=== PATIENT | female | born 1990 | race Caucasian/White ===

== ENCOUNTER 2016-12-02 09:44 | Emergency (ER) | payer OTHER ==
[2016-12-02 10:27] VITALS: BP 130/79
[2016-12-02] MEDS ORDERED: Ibuprofen TAB* 600 MG PO ONE (12:05)
--- NOTE | 2016-12-02 12:18 | UC ---
Back Pain HPI - HPI Summary HPI Summary: patient fell down 6 stairs, landing on her tailbone and sliding down the rest. she has severe pain at the cleft, swelling noted, no brusiing. she is finding it hard to sit or stand comfortably. - History of Current Complaint Chief Complaint: UCBackPain Stated Complaint: TAILBONE INJURY FROM FALL 12/01 Time Seen by Provider: 12/02/16 11:55 Hx Obtained From: Patient Hx Last Menstrual Period: 12/02/16 ?: No Onset/Duration: Sudden Onset, Lasting Days Timing: Constant Severity Initially: Severe Severity Currently: Severe Pain Intensity: 7 Pain Scale Used: 0-10 Numeric Back Pain: Is Discrete @ - tailbone Aggravating: Movement, Walking Alleviating: Rest Associated Signs And Symptoms: Positive: Swelling - Risk Factors AAA Risk Factors: Negative TAD Risk Factors: Negative Cauda Equina Risk Factors: Negative - Allergies/Home Medications Allergies/Adverse Reactions: Allergies Allergy/AdvReac Type Severity Reaction Status Date / Time No Known Allergies Allergy Verified 12/02/16 10:19 Home Medications: Home Medications [id number] W/ APAP [Tylenol Cold & Flu Severe] 1 tab PO Q6H PRN [History Confirmed 12/02/16] PMH/Surg Hx/FS Hx/Imm Hx Previously Healthy: Yes Endocrine History Of: Denies: Diabetes Cardiovascular History Of: Denies: Cardiac Disorders Respiratory History Of: Denies: Asthma - Surgical History Surgical History: Yes Surgery Procedure, Year, and Place: 2006 and 2012. RIGHT HAND SX TIMES 3 SINCE 10/2015 - Family History Known Family History: Positive: Cardiac Disease, Hypertension, Diabetes - Social History Alcohol Use: None Substance Use Type: None Smoking Status (MU): Never Smoked Tobacco Review of Systems Constitutional: Negative Skin: Negative Eyes: Negative ENT: Negative Respiratory: Negative Cardiovascular: Palpitations Gastrointestinal: Negative Genitourinary: Negative Motor: Negative Neurovascular: Negative Musculoskeletal: Arthralgia, Decreased ROM, Edema, Myalgia Neurological: Negative Psychological: Negative All Other Systems Reviewed And Are Negative: Yes Physical Exam Triage Information Reviewed: Yes Appearance: Well-Appearing, Pain Distress, Obese Vital Signs: Initial Vital Signs Temp 98.0 F 12/02/16 10:20 Pulse 93 12/02/16 10:20 Resp 16 12/02/16 10:20 BP 130/79 02/12/17 10:20 Pulse Ox 99 12/02/16 10:20 Vital Signs Reviewed: Yes Eye Exam: Normal Eyes: Positive: Conjunctiva Clear ENT Exam: Normal ENT: Positive: Normal ENT inspection, Hearing grossly normal, Pharynx normal, TMs normal Dental Exam: Normal Neck exam: Normal Neck: Positive: Supple, Nontender, No Lymphadenopathy Respiratory Exam: Normal Respiratory: Positive: Chest non-tender, Lungs clear, Normal breath sounds Cardiovascular Exam: Normal Cardiovascular: Positive: RRR, No Murmur, Pulses Normal Abdominal Exam: Normal Abdomen Description: Positive: Nontender, No Organomegaly, Soft Bowel Sounds: Positive: Present Musculoskeletal Exam: Normal Musculoskeletal: Positive: Strength Intact, ROM Intact, No Edema Neurological Exam: Normal Neurological: Positive: Alert, Muscle Tone Normal Psychological Exam: Normal Skin Exam: Normal Back Pain Course/Dx - Course Course Of Treatment: hx obtained, exam performed, meds reveiwed, ibuprofen given , xray obtained, reviewed treatment and discusses risk and benefits of xray, patient opted to have an xray. - Differential Dx/Diagnosis Differential Diagnosis/HQI/PQRI: Arthritis, Herniated Disc, Strain, Sprain Provider Diagnoses: fracture coccyx Discharge - Discharge Plan Condition: Stable Disposition: HOME Patient Education Materials: Coccyx Injury (ED) Additional Instructions: !. Take the medications as prescribed. 2. Find something that you can tolerate sitting, donut cushion or soft cushion. 3. pain free Range of Motion.
--- NOTE | 2016-12-02 12:37 | RAD ---
Indication: " Tailbone" pain after a fall down stairs Comparison: None. Technique: AP and lateral views sacrum and coccyx. Report: Depicted on the lateral view image there is anterior displacement of the coccyx relative to the sacrum. The bones appear to be in-line on the AP view. Remaining visualized bones are intact and properly aligned. IMPRESSION: In the correct clinical setting these findings could be compatible with a minimally displaced sacrococcygeal fracture.
== END 2016-12-02 13:08 | disposition home or self-care (01) ==
LOC: UCCORT 09:44
DX: S32.2XXA Fracture of coccyx, initial encounter for closed fracture (principal); W10.9XXA Fall (on) (from) unspecified stairs and steps, initial encounter; Y92.9 Unspecified place or not applicable
CPT/HCPCS: 72220; 99212; A9270-GY; G0463

== ENCOUNTER 2017-11-01 08:14 | Emergency (ER) | payer OTHER ==
[2017-11-01 08:31] VITALS: BP 122/78
--- NOTE | 2017-11-01 09:32 | UC ---
Eye Complaint HPI - HPI Summary HPI Summary: 27 yo female with mild URI symptoms x 1 week now with bilateral eye redness and D/C x 3 days no pain irritated and itchy - History of Current Complaint Chief Complaint: UCEye Stated Complaint: BILATERAL EYE COMPLAINT Time Seen by Provider: 11/01/17 09:23 Hx Obtained From: Patient Hx Last Menstrual Period: unknown, Onset/Duration: Gradual Onset, Lasting Days - 3 Severity Initially: Mild Severity Currently: Mild Pain Intensity: 2 Pain Scale Used: 0-10 Numeric Location of Injury: Conjunctiva Associated Signs And Symptoms: Positive: Drainage (Purulent) - Risk Factors Penetrating Injury Risk Factor: Negative Globe Rupture Risk Factors: Negative Acute Glaucoma Risk Factors: Negative Optic Artery Occlusion Risk Factors: Negative - Allergies/Home Medications Allergies/Adverse Reactions: Allergies Allergy/AdvReac Type Severity Reaction Status Date / Time No Known Allergies Allergy Verified 11/01/17 08:31 Home Medications: Home Medications Docosahexaenoic Acid [ Dha] 200 mg PO DAILY 11/01/17 [History Confirmed 11/01/17] PMH/Surg Hx/FS Hx/Imm Hx Previously Healthy: Yes - Surgical History Surgical History: Yes Surgery Procedure, Year, and Place: 2006 and 2012. RIGHT HAND SX TIMES 3 SINCE 10/2015 - Family History Known Family History: Positive: Cardiac Disease, Hypertension, Diabetes - Social History Alcohol Use: None Substance Use Type: None Smoking Status (MU): Never Smoked Tobacco Review of Systems Constitutional: Negative Skin: Negative Eyes: Drainage, Eye Redness ENT: Nasal Discharge, Sinus Congestion Respiratory: Negative Cardiovascular: Negative Gastrointestinal: Negative Genitourinary: Negative Motor: Negative Neurovascular: Negative Musculoskeletal: Negative Neurological: Negative Psychological: Negative Is Patient Immunocompromised?: No All Other Systems Reviewed And Are Negative: Yes Physical Exam Triage Information Reviewed: Yes Appearance: Well-Appearing, No Pain Distress, Well-Nourished Vital Signs: Initial Vital Signs Temp 98 F 11/01/17 08:27 Pulse 81 11/01/17 08:27 Resp 18 11/01/17 08:27 BP 122/78 11/01/17 08:27 Pulse Ox 100 11/01/17 08:27 Eyes: Positive: Conjunctiva Inflamed, Discharge ENT: Positive: Nasal congestion, Nasal drainage, Uvula midline. Negative: Tonsillar swelling, Tonsillar exudate, Trismus, Muffled voice, Hoarse voice, Sinus tenderness Neck: Positive: Supple, Nontender, No Lymphadenopathy Respiratory: Positive: Lungs clear, Normal breath sounds, No respiratory distress Cardiovascular: Positive: RRR, No Murmur Musculoskeletal: Positive: ROM Intact, No Edema Neurological: Positive: Alert Psychological Exam: Normal Skin Exam: Normal Eye Complaint Course/Dx - Differential Dx/Diagnosis Provider Diagnoses: bilateral conjunctivitis Discharge - Discharge Plan Condition: Stable Disposition: HOME Prescriptions: Polymyx/Trimethoprim OPTH* [Polytrim OPHTH*] 1 - 2 drop BOTH EYES QID #1 btl Patient Education Materials: Conjunctivitis (ED) Forms: *Work Release Referrals: No Primary Care Phys,NOPCP [Primary Care Provider] - Additional Instructions: recheck in 4 days if not better recheck sooner for new or worsening symptoms also use ZADITOR eye drops (OTC)
== END 2017-11-01 09:33 | disposition home or self-care (01) ==
LOC: UCCORT 08:14
DX: H10.9 Unspecified conjunctivitis (principal)
CPT/HCPCS: 99212; G0463

== ENCOUNTER 2018-01-14 07:38 | Emergency (ER) | payer MEDICAID, OTHER ==
[2018-01-14 07:57] VITALS: BP 132/61
--- NOTE | 2018-01-14 08:20 | UC ---
Skin Complaint HPI - HPI Summary HPI Summary: facial rash x 1 day rash around the eyes , + red , itchy , puffy eyes, no eye pain , no eye discharge used a make up remover last night , woke up with the rash this morning - History of Current Complaint Chief Complaint: UCEye Time Seen by Provider: 01/14/18 07:52 Stated Complaint: BILATERAL EYE COMPLAINT Hx Obtained From: Patient Hx Last Menstrual Period: pt not sure periods were irregular before preganancy ?: Yes Onset/Duration: Gradual Onset, Lasting Days - 1, Still Present Timing: Constant Onset Severity: Moderate Current Severity: Moderate Pain Intensity: 6 Pain Scale Used: 0-10 Numeric Location: Face Character: Swelling, Pruritus, Redness Aggravating Factor(s): Nothing Alleviating Factor(s): Nothing Associated Signs & Symptoms: Positive: Rash. Negative: Nausea, Vomiting, Numbness, Fever, Chills, Tenderness - Allergy/Home Medications Allergies/Adverse Reactions: Allergies Allergy/AdvReac Type Severity Reaction Status Date / Time No Known Allergies Allergy Verified 01/14/18 07:47 Home Medications: Home Medications Pnv No.95/Ferrous Fum/Folic AC [ Vitamin & Minera 28-0.8 mg] 1 tab PO DAILY 01/14/18 [History Confirmed 01/14/18] Review of Systems Constitutional: Negative Skin: Rash Eyes: Negative ENT: Negative Respiratory: Negative Cardiovascular: Negative Is Patient Immunocompromised?: No All Other Systems Reviewed And Are Negative: Yes PMH/Surg Hx/FS Hx/Imm Hx Previously Healthy: Yes - Surgical History Surgical History: Yes Surgery Procedure, Year, and Place: 2006 and 2012. RIGHT HAND SX TIMES 3 SINCE 10/2015 - Family History Known Family History: Positive: Cardiac Disease, Hypertension, Diabetes - Social History Alcohol Use: None Substance Use Type: None Smoking Status (MU): Never Smoked Tobacco Physical Exam Triage Information Reviewed: Yes Appearance: Well-Appearing, No Pain Distress, Well-Nourished Vital Signs: Initial Vital Signs Temp 98.2 F 01/14/18 07:48 Pulse 92 01/14/18 07:48 Resp 18 01/14/18 07:48 BP 132/61 01/14/18 07:48 Pulse Ox 99 01/14/18 07:48 Vital Signs Reviewed: Yes Eye Exam: Normal Eyes: Positive: Conjunctiva Clear ENT Exam: Normal ENT: Positive: Normal ENT inspection, Hearing grossly normal, Pharynx normal Neck: Positive: Supple, Nontender Respiratory Exam: Normal Respiratory: Positive: Chest non-tender, Lungs clear, Normal breath sounds Cardiovascular: Positive: RRR, No Murmur, Pulses Normal Skin: Positive: rashes - macular rash periorbital area, buffy bilateral upper eyelid, Course/Dx - Diagnoses Provider Diagnoses: contact dermatitis Discharge - Sign-Out/Discharge Documenting (check all that apply): Discharge - Discharge Plan Condition: Stable Disposition: HOME Prescriptions: Triamcinolone 0.025% CM(NF) [Kenalog Cream 0.025%*] 1 applic TOPICAL BID #30 gm Patient Education Materials: Contact Dermatitis (ED) Forms: *Work Release Referrals: No Primary Care Phys,NOPCP [Primary Care Provider] - 7 Days - Billing Disposition and Condition Condition: STABLE Disposition: HOME
== END 2018-01-14 08:14 | disposition home or self-care (01) ==
LOC: UCCORT 07:38
DX: L25.9 Unspecified contact dermatitis, unspecified cause (principal)
CPT/HCPCS: 99211; G0463

== ENCOUNTER 2019-03-12 08:10 | Emergency (ER) | payer OTHER ==
[2019-03-12 08:33] VITALS: BP 132/85
--- NOTE | 2019-03-12 09:03 | ED ---
Throat Pain/Nasal Congestion - HPI Summary HPI Summary: 29 yr female with the complaint of sore throat. Onset three days ago. The patient has had runny nose, and coughing. Other people have had similar symptoms in the family. The patient has no other complaints. Symptoms are moderate - History of Current Complaint Chief Complaint: UCRespiratory Time Seen by Provider: 03/12/19 08:42 - Allergies/Home Medications Allergies/Adverse Reactions: Allergies Allergy/AdvReac Type Severity Reaction Status Date / Time No Known Allergies Allergy Verified 03/12/19 08:29 Home Medications: Home Medications Chlorpheniramine/Dextromethorp [Cough & Cold] 1 tab PO Q4H PRN 03/12/19 [ History Confirmed 03/12/19] Guaifenesin/Dextromethorphan [Cough-Chest Congestion Dm Liq] 177 ml PO Q4H PRN 03/12/19 [History Confirmed 03/12/19] PMH/Surg Hx/FS Hx/Imm Hx Endocrine/Hematology History: Denies: Hx Diabetes Respiratory History: Denies: Hx Asthma - Surgical History Surgery Procedure, Year, and Place: 2006 and 2012, 2018. RIGHT HAND SX TIMES 3 SINCE 10/2015 Infectious Disease History: No Infectious Disease History: Denies: Traveled Outside the [place] in Last 30 Days - Family History Known Family History: Positive: Cardiac Disease, Hypertension, Diabetes - Social History Occupation: Employed Full-time Alcohol Use: None Substance Use Type: Reports: None Smoking Status (MU): Never Smoked Tobacco Review of Systems Constitutional: Negative Positive: Sore Throat, Nasal Discharge Positive: Cough All Other Systems Reviewed And Are Negative: Yes Physical Exam Triage Information Reviewed: Yes Vital Signs On Initial Exam: Initial Vitals Temp Pulse Resp BP Pulse Ox 97.3 F 97 20 132/85 97 03/12/19 08:30 03/12/19 08:30 03/12/19 08:30 03/12/19 08:30 03/12/19 08:30 Vital Signs Reviewed: Yes Appearance: Positive: Well-Appearing, No Pain Distress Skin: Positive: Warm, Skin Color Reflects Adequate Perfusion Head/Face: Positive: Normal Head/Face Inspection Eyes: Positive: EOMI, СВЕТЛАНА ENT: Positive: Normal ENT inspection, Pharyngeal erythema, Nasal congestion, TMs normal Neck: Positive: Nontender Respiratory/Lung Sounds: Positive: Clear to Auscultation, Breath Sounds Present Cardiovascular: Positive: RRR. Negative: Murmur Abdomen Description: Negative: Distended Musculoskeletal: Positive: Strength/ROM Intact Neurological: Positive: Sensory/Motor Intact, Alert, Oriented to Person Place, Time, CN Intact II-III Psychiatric: Positive: Normal - [place] Coma Scale Best Eye Response: 4 - Spontaneous Best Motor Response: 6 - Obeys Commands Best Verbal Response: 5 - Oriented Coma Scale Total: 15 Diagnostics - Vital Signs Vital Signs Temp Pulse Resp BP Pulse Ox 03/12/19 08:30 97.3 F 97 20 132/85 97 - Laboratory Lab Results: Lab Results 03/12/19 Range/Units 08:49 Group A Strep Rapid Positive A (Negative) Lab Statement: Any lab studies that have been ordered have been reviewed, and results considered in the medical decision making process. EENT Course/Dx - Course Course Of Treatment: 29 yr old female with the positive rapid strep. Rx amox. - Diagnoses Provider Diagnoses: Strep throat Discharge - Sign-Out/Discharge Documenting (check all that apply): Patient Departure All imaging exams completed and their final reports reviewed: No Studies - Discharge Plan Condition: Good Disposition: HOME Prescriptions: Amoxicillin PO (*) [Amoxicillin 500 MG CAP*] 500 mg PO TID #30 cap Patient Education Materials: Strep Throat (ED) Referrals: No Primary Care Phys,NOPCP [Primary Care Provider] - [facility] [place] [facility] [Outside] - 3 Days - Billing Disposition and Condition Condition: GOOD Disposition: Home
== END 2019-03-12 09:10 | disposition home or self-care (01) ==
LOC: UCCORT 08:10
DX: J02.0 Streptococcal pharyngitis (principal)
CPT/HCPCS: 87651; 99212; G0463

== ENCOUNTER 2019-05-18 14:43 | Emergency (ER) | payer OTHER ==
[2019-05-18 15:13] VITALS: BP 139/83
--- NOTE | 2019-05-18 15:21 | ED ---
Throat Pain/Nasal Congestion - HPI Summary HPI Summary: 29 yr old female with the complaint of right ear pain. Onset over the weekend. She has had URI symptoms the past week. No fever. Symptoms are moderate. No NV. No allergies to meds. She states she caught her husbands cold last week. - History of Current Complaint Chief Complaint: UCEar Time Seen by Provider: 05/18/19 15:13 - Allergies/Home Medications Allergies/Adverse Reactions: Allergies Allergy/AdvReac Type Severity Reaction Status Date / Time No Known Allergies Allergy Verified 05/18/19 15:09 PMH/Surg Hx/FS Hx/Imm Hx Endocrine/Hematology History: Denies: Hx Diabetes Respiratory History: Denies: Hx Asthma - Surgical History Surgery Procedure, Year, and Place: 2006 and 2012, 2018. RIGHT HAND SX TIMES 3 SINCE 10/2015 Infectious Disease History: No Infectious Disease History: Denies: Traveled Outside the [place] in Last 30 Days - Family History Known Family History: Positive: Cardiac Disease, Hypertension, Diabetes - Social History Occupation: Employed Full-time Alcohol Use: None Substance Use Type: Reports: None Smoking Status (MU): Never Smoked Tobacco Review of Systems Constitutional: Negative Positive: Ear Ache, Nasal Discharge All Other Systems Reviewed And Are Negative: Yes Physical Exam Triage Information Reviewed: Yes Vital Signs On Initial Exam: Initial Vitals Temp Pulse Resp BP Pulse Ox 97.4 F 85 17 139/83 100 05/18/19 15:10 05/18/19 15:10 05/18/19 15:10 05/18/19 15:10 05/18/19 15:10 Vital Signs Reviewed: Yes Appearance: Positive: Well-Appearing, No Pain Distress Skin: Positive: Warm, Skin Color Reflects Adequate Perfusion Head/Face: Positive: Normal Head/Face Inspection Eyes: Positive: EOMI ENT: Positive: Nasal congestion, Nasal drainage, TM red - right with effusion Neck: Positive: Nontender Respiratory/Lung Sounds: Positive: Clear to Auscultation, Breath Sounds Present Cardiovascular: Positive: RRR. Negative: Murmur Abdomen Description: Negative: Distended Musculoskeletal: Positive: Strength/ROM Intact Neurological: Positive: Sensory/Motor Intact, Alert, Oriented to Person Place, Time, CN Intact II-III, Speech Normal Psychiatric: Positive: Normal Diagnostics - Vital Signs Vital Signs Temp Pulse Resp BP Pulse Ox 05/18/19 15:10 97.4 F 85 17 139/83 100 - Laboratory Lab Statement: Any lab studies that have been ordered have been reviewed, and results considered in the medical decision making process. EENT Course/Dx - Course Course Of Treatment: 29 yr old with right OM. Rx with amox - Diagnoses Provider Diagnoses: Right otitis media, Upper respiratory infection, Hypertension Discharge - Sign-Out/Discharge Documenting (check all that apply): Patient Departure All imaging exams completed and their final reports reviewed: No Studies - Discharge Plan Condition: Good Disposition: HOME Prescriptions: Amoxicillin PO (*) [Amoxicillin 500 MG CAP*] 500 mg PO TID #30 cap Patient Education Materials: Ear Infection (ED), Hypertension (ED) Referrals: No Primary Care Phys,NOPCP [Primary Care Provider] - [facility] [place] [facility] [Outside] - 2 Days - Billing Disposition and Condition Condition: GOOD Disposition: Home
== END 2019-05-18 15:27 | disposition home or self-care (01) ==
LOC: UCCORT 14:43
DX: H66.91 Otitis media, unspecified, right ear (principal); J06.9 Acute upper respiratory infection, unspecified; I10 Essential (primary) hypertension
CPT/HCPCS: 99212; G0463

== ENCOUNTER 2019-07-19 13:09 | Emergency (ER) | payer OTHER ==
[2019-07-19 15:10] VITALS: BP 134/83
--- NOTE | 2019-07-19 15:22 | UC ---
Skin Complaint HPI - HPI Summary HPI Summary: Pt presents with c/o of tender "pimple" that pt reports squeezing and "popping" with small amount of purulent drainge yesterday. Pt sates taht now the area around the "pimple" is swollen, tender and firm to touch. - History of Current Complaint Time Seen by Provider: 07/19/19 14:44 Stated Complaint: SKIN COMPLAINT Hx Obtained From: Patient Hx Last Menstrual Period: 07/04/19 ?: No Onset/Duration: Gradual Onset, Lasting Days, Still Present, Worse Since - onset Skin Exposure Onset/Duration: Days Ago Timing: Constant Onset Severity: Mild Current Severity: Moderate Pain Intensity: 4 Location: Face, Nose - left side Character: Redness, Raised, Painful Aggravating Factor(s): Touch Associated Signs & Symptoms: Positive: Drainage, Tenderness - Allergy/Home Medications Allergies/Adverse Reactions: Allergies Allergy/AdvReac Type Severity Reaction Status Date / Time No Known Allergies Allergy Verified 07/19/19 14:58 Home Medications: Home Medications Naproxen Sodium [Aleve] 440 mg PO ONCE PRN 07/19/19 [History Confirmed 07/19/19] Vitamin C Gummi 2 tab PO DAILY 07/19/19 [History Confirmed 07/19/19] PMH/Surg Hx/FS Hx/Imm Hx Previously Healthy: Yes - Surgical History Surgical History: Yes Surgery Procedure, Year, and Place: 2006 and 2012, 2018. RIGHT HAND SX TIMES 3 SINCE 10/2015 - Family History Known Family History: Positive: Cardiac Disease, Hypertension, Diabetes - Social History Occupation: Employed Full-time Alcohol Use: None Substance Use Type: None Smoking Status (MU): Never Smoked Tobacco Have You Smoked in the Last Year: No Review of Systems All Other Systems Reviewed And Are Negative: Yes Constitutional: Positive: Negative Skin: Positive: Other - tender, firm "lump", left side nostril. Eyes: Positive: Negative ENT: Positive: Other - teneder mass left side nostril Respiratory: Positive: Negative Cardiovascular: Positive: Negative Gastrointestinal: Positive: Negative Genitourinary: Positive: Negative Motor: Positive: Negative Neurovascular: Positive: Negative Musculoskeletal: Positive: Negative Neurological: Positive: Negative Psychological: Positive: Negative Is Patient Immunocompromised?: No Physical Exam Triage Information Reviewed: Yes Appearance: Well-Appearing Vital Signs: Initial Vital Signs Temp 99.1 F 09/29/19 15:01 Pulse 85 07/19/19 15:01 Resp 20 07/19/19 15:01 BP 134/83 07/19/19 15:01 Pulse Ox 99 07/19/19 15:01 Vital Signs Reviewed: Yes Eye Exam: Normal ENT Exam: Other - tender firm, moveable mass Dental Exam: Normal Neck exam: Normal Respiratory: Positive: No respiratory distress Musculoskeletal Exam: Normal Neurological Exam: Normal Psychological Exam: Normal Skin Exam: Other - marble size firm tender lump left side of outer nostril. scabbed over area, no drainage Course/Dx - Differential Diagnoses - Skin Complaint Differential Diagnoses: Abscess, MRSA - Diagnoses Provider Diagnosis: Abscess of nose, Wound infection Discharge ED - Sign-Out/Discharge Documenting (check all that apply): Patient Departure All imaging exams completed and their final reports reviewed: No Studies - Discharge Plan Condition: Stable Disposition: HOME Prescriptions: Cephalexin CAP* [Keflex 500 CAP*] 500 mg PO Q8H #30 cap Patient Education Materials: Wound Infection (ED), Warm Compress or Soak (ED) Referrals: [facility] [place] [facility] [Outside] - If Needed No Primary Care Phys,NOPCP [Primary Care Provider] - - Billing Disposition and Condition Condition: STABLE Disposition: Home - Attestation Statements Provider Attestation: I was available for consult. This patient was seen by the SHARON. The patient was not presented to , seen by or examined by pr -Jeremy Roach MD
== END 2019-07-19 15:31 | disposition home or self-care (01) ==
LOC: UCCORT 13:09
DX: J34.0 Abscess, furuncle and carbuncle of nose (principal)
CPT/HCPCS: 99212; G0463

== ENCOUNTER 2019-08-19 12:19 | Emergency (ER) | payer OTHER ==
--- NOTE | 2019-08-19 13:36 | UC ---
FLU HPI - HPI Summary HPI Summary: 29-year-old female presents with onset of chills, general malaise, headache, and body aches last night. States today started developing bilateral ear pain. Denies isn't tick bite, rash, fever, nasal congestion, runny nose, sore throat , cough, chest pain, shortness of breath, abdominal pain, nausea, vomiting, or diarrhea. - History of Current Complaint Chief Complaint: UCRespiratory Stated Complaint: EARS,MIGRAINE,BODYACHES,CHILLS Time Seen by Provider: 08/19/19 13:19 Hx Obtained From: Patient Hx Last Menstrual Period: 08/04/19 Pain Intensity: 7 - Allergy/Home Medications Allergies/Adverse Reactions: Allergies Allergy/AdvReac Type Severity Reaction Status Date / Time No Known Allergies Allergy Verified 08/19/19 13:03 Home Medications: Home Medications NK [No Home Medications Reported] 08/19/19 [History Confirmed 08/19/19] PMH/Surg Hx/FS Hx/Imm Hx Previously Healthy: Yes - Denies significant PMH - Surgical History Surgical History: Yes Surgery Procedure, Year, and Place: 2006 and 2012, 2018. RIGHT HAND SX TIMES 3 SINCE 10/2015 - Family History Known Family History: Positive: Cardiac Disease, Hypertension, Diabetes - Social History Occupation: Employed Full-time Lives: With Family Alcohol Use: None Substance Use Type: None Smoking Status (MU): Never Smoked Tobacco Have You Smoked in the Last Year: No Review of Systems All Other Systems Reviewed And Are Negative: Yes Constitutional: Positive: Chills, Fatigue. Negative: Fever Skin: Negative: Rash Eyes: Negative: Drainage, Eye Redness ENT: Positive: Ear Ache. Negative: Sore Throat, Nasal Discharge, Sinus Congestion, Sinus Pain/Tenderness Respiratory: Negative: Shortness Of Breath, Cough Cardiovascular: Negative: Palpitations, Chest Pain Gastrointestinal: Negative: Abdominal Pain, Vomiting, Diarrhea, Nausea Genitourinary: Positive: Negative Musculoskeletal: Positive: Myalgia. Negative: Arthralgia Neurological: Positive: Headache Is Patient Immunocompromised?: No Physical Exam - Summary Physical Exam Summary: GENERAL APPEARANCE: Well developed, well nourished, alert and cooperative, and appears to be in no acute distress. EYES: Conjunctiva clear. No drainage. EARS: External auditory canals and tympanic membranes clear, hearing grossly intact. NOSE: No nasal discharge. THROAT: Pharynx normal. No tonsilar inflammation, swelling, exudate, or lesions. Uvula midline. NECK: Neck supple, non-tender without lymphadenopathy. CARDIAC: Normal S1 and S2. No S3, S4 or murmurs. Rhythm is regular. There is no peripheral edema, cyanosis or pallor. Extremities are warm and well perfused. Capillary refill is less than 2 seconds. Peripheral pulses intact. LUNGS: Clear to auscultation without rales, rhonchi, wheezing or diminished breath sounds. ABDOMEN: Positive bowel sounds. Soft, nondistended, nontender. No guarding or rebound. No masses or hepatosplenomegally. MUSKULOSKELETAL: ROM intact to all extremities. No joint erythema or tenderness. Normal muscular development. Normal gait. SKIN: Skin normal color, texture and turgor with no lesions or eruptions. Triage Information Reviewed: Yes Vital Signs: Initial Vital Signs Temp 99.8 F 08/19/19 13:03 Pulse 124 08/19/19 13:03 Resp 16 08/19/19 13:03 BP 151/74 08/19/19 13:03 Pulse Ox 100 08/19/19 13:03 Vital Signs Reviewed: Yes Flu Course/Dx - Course Course Of Treatment: 29-year-old female presents with onset of chills, general malaise, headache, and body aches last night. States today started developing bilateral ear pain. Denies isn't tick bite, rash, fever, nasal congestion, runny nose, sore throat , cough, chest pain, shortness of breath, abdominal pain, nausea, vomiting, or diarrhea. She was initially noted to be afebrile at triage however repeat showed an elevated temperature of 101.2 F for which she was given ibuprofen 600 mg. Hypertensive and tachycardic at triage otherwise vital signs stable. Her exam was overall unremarkable. Rapid flu was negative. Reviewed findings with the patient. Discussed that her symptoms are likely a viral syndrome and recommending symptomatic treatment at this time. She is to return here or follow up with her primary care provider in 7 days if symptoms are not improving. Anticipatory guidance and warning symptoms were reviewed with the patient. Verbalizes understanding and agrees with plan of care. - Differential Dx/Diagnosis Differential Diagnosis/HQI/PQRI: Bronchitis, Influenza, Pneumonia, Upper Respiratory Infection Provider Diagnosis: Acute viral syndrome Discharge ED - Sign-Out/Discharge Documenting (check all that apply): Patient Departure All imaging exams completed and their final reports reviewed: No Studies - Discharge Plan Condition: Stable Disposition: HOME Patient Education Materials: Viral Syndrome (ED) Forms: *Work Release Referrals: No Primary Care Phys,NOPCP [Primary Care Provider] - Additional Instructions: The rapid flu test performed in the clinic today was negative. Your history and exam are consistent with a viral infection. Viral infections do not respond to antibiotics and are limited to the treatment of symptoms. Viral infections typically run their course in 7-10 days. Drink plenty of fluids to avoid dehydration especially if you are running any fever. Use an over the counter decongestant such as Sudafed for any nasal congestion. Take over the counter acetaminophen (Tylenol) or ibuprofen (Advil, Motrin) according to directions as needed for pain or fever. Use salt water gargles several times a day if you have a sore throat. You may also use Chloraseptic spray or Cepacol lonzenges according to directions which contain a numbing medication and can provide some temporary relief from your sore throat. Return here or follow up with your primary care provider in 7 days if symptoms persist. Seek immediate medical attention in the emergency room if you have fever greater than 100.5 F despite taking acetaminophen or ibuprofen, have chest pain , difficulty breathing, are unable to swallow, or have any worsening of symptoms. - Billing Disposition and Condition Condition: STABLE Disposition: Home
[2019-08-19] MEDS ORDERED: Ibuprofen TAB* 600 MG PO ONE (13:57)
[2019-08-19 13:58] LABS: Influenza A Molecular NEGATIVE (Negative); Influenza B Molecular NEGATIVE (Negative)
[2019-08-19 13:59] VITALS: BP 144/66
== END 2019-08-19 14:04 | disposition home or self-care (01) ==
LOC: UCCORT 12:19
DX: R51 Headache (principal); R68.83 Chills (without fever); R53.81 Other malaise; M79.10 Myalgia, unspecified site; R53.83 Other fatigue; H92.09 Otalgia, unspecified ear
CPT/HCPCS: 99212; A9270-GY; G0463

== ENCOUNTER 2020-01-17 19:31 | Emergency (ER) | payer OTHER ==
--- NOTE | 2020-01-17 19:37 | UC ---
Ear Complaint HPI - HPI Summary HPI Summary: 29-year-old female with left earache over the past 2 or 3 days. She stated she had had a fever but 102 today. She denies any other symptoms. She does have occasional seasonal allergies. She states the pain is intermittent and occasionally sharp. - History of Current Complaint Stated Complaint: EAR PAIN,FEVER Time Seen by Provider: 01/17/20 19:34 Hx Obtained From: Patient Hx Last Menstrual Period: 08/04/19 ?: No Onset/Duration: Gradual Onset, Lasting Days Severity Initially: Mild Severity Currently: Mild Aggravating Factors: Nothing Alleviating Factors: Nothing Related History: Seasonal Allergies - Allergies/Home Medications Allergies/Adverse Reactions: Allergies Allergy/AdvReac Type Severity Reaction Status Date / Time cephalexin [From Keflex] Allergy See Comment Verified 01/17/20 20:02 Home Medications: Home Medications Acetaminophen [Tylenol Extra Strength] 500 mg PO DAILY 01/17/20 [History Confirmed 01/17/20] PMH/Surg Hx/FS Hx/Imm Hx Previously Healthy: Yes - Surgical History Surgical History: Yes Surgery Procedure, Year, and Place: 2006 and 2012, 2018. RIGHT HAND SX TIMES 3 SINCE 10/2015 - Family History Known Family History: Positive: Cardiac Disease, Hypertension, Diabetes - Social History Occupation: Works From/At Home Lives: With Family Alcohol Use: None Substance Use Type: None Smoking Status (MU): Never Smoked Tobacco Have You Smoked in the Last Year: No Review of Systems All Other Systems Reviewed And Are Negative: Yes Constitutional: Positive: Fever - Patient states she had a fever 102 today. ENT: Positive: Ear Ache - Left earache over the past 2 or 3 days. Is Patient Immunocompromised?: No Physical Exam Triage Information Reviewed: Yes Appearance: Well-Appearing, No Pain Distress, Well-Nourished Vital Signs Reviewed: Yes Eyes: Positive: Conjunctiva Clear ENT: Positive: Hearing grossly normal, Pharynx normal, TMs normal, Uvula midline Neck: Positive: Supple, Nontender, No Lymphadenopathy Respiratory: Positive: Lungs clear, Normal breath sounds, No respiratory distress, No accessory muscle use Cardiovascular: Positive: RRR, No Murmur, Pulses Normal, Brisk Capillary Refill Musculoskeletal Exam: Normal Neurological Exam: Normal Psychological Exam: Normal Skin Exam: Normal Ear Complaint Course/Dx - Course Course Of Treatment: The patient is comfortable here and in no distress. At the end of the exam she did ask about signs and symptoms of covert 19 infection. We discussed that and she decided she would like to be tested. When the nurse went into the room with her complete PPE in place the patient decided that because she would have to self isolate home she did not want any testing including flu testing. - Differential Dx/Diagnosis Provider Diagnosis: Otalgia, left ear Discharge ED - Sign-Out/Discharge Documenting (check all that apply): Patient Departure All imaging exams completed and their final reports reviewed: No Studies - Discharge Plan Condition: Good Disposition: HOME Patient Education Materials: Earache (ED) Referrals: Care [facility] [Outside] No Primary Care Phys,NOPCP [Primary Care Provider] - Additional Instructions: You may alternate Tylenol every 4 hours with ibuprofen every 8 hours for fever or ear pain. Definite recheck in 2 or 3 days if you have continued ear pain or if any worsening. - Billing Disposition and Condition Condition: GOOD Disposition: Home
== END 2020-01-17 20:31 | disposition home or self-care (01) ==
LOC: UCCORT 19:31
DX: H92.02 Otalgia, left ear (principal); R50.9 Fever, unspecified; Z88.1 Allergy status to other antibiotic agents
CPT/HCPCS: 99211; G0463